=== PATIENT | female | born 1990 | race Two or more races ===

== ENCOUNTER 2019-04-03 13:57 | Emergency (ER) | payer MEDICAID ==
[~2019-04-03] VITALS: Ht 160 cm; Wt 59.4 kg
--- NOTE | 2019-04-03 14:25 | NUR ---
"LUQ ABDOMINAL PAIN W/ NAUSEA SINCE YESTERDAY. SEEN @ [facility]RG[facility]ARE WAS REFERRED TO GO TO ED FOR FURTHER EVAl" PT AAOX4, -SOB, NAD NOTED, VSS, PENDING MD BERNARDO
[2019-04-03 14:57] LABS: BASOPHILS % (AUTO) 0.6 % (0.0-2.0); EOSINOPHILS % (AUTO) 1.3 % (0.0-6.0); HEMATOCRIT 38 % (33-45); HEMOGLOBIN 12.4 g/dL (11.5-14.8); LYMPHOCYTES # (AUTO) 0.9 /CMM (0.8-4.8); MEAN CORPUSCULAR HGB CONC 33 g/dl (31.0-36.0); MEAN CORPUSCULAR VOLUME 89 fL (82-100); MONOCYTES # (AUTO) 0.5 /CMM (0.1-1.30); MONOCYTES % (AUTO) 8.3 % (2.0-12.0); NEUTROPHILS # (AUTO) 4.6 /CMM (1.8-8.9); NEUTROPHILS % (AUTO) 74.8 % (43.0-81.0); PLATELET COUNT (AUTO) 242 /CMM (150-450); RED BLOOD CELL COUNT(AUTO) 4.23 MIL/uL (4.0-5.2); WHITE BLOOD COUNT (AUTO) 6.1 K/uL (4.3-11.0)
[2019-04-03 15:04] LABS: CALCIUM, SERUM 8.7 mg/dL (8.5-10.1); CREATININE 0.7 mg/dL (0.6-1.3); POTASSIUM 3.5 mmol/L (3.5-5.1)
[2019-04-03 15:18] LABS: ALBUMIN 3.8 g/dL (3.4-5.0); BILIRUBIN,DIRECT 0.3 mg/dL (0.0-0.2); BILIRUBIN,TOTAL 0.7 mg/dL (0.2-1.0); TOTAL PROTEIN, SERUM 7.8 g/dL (6.4-8.2)
[2019-04-03] MEDS ORDERED: KETOROLAC TROMETHAMINE INJ 30 MG/ML VIAL ONE (15:29)
[2019-04-03] MEDS ORDERED: KETOROLAC TROMETHAMINE INJ 30 MG/ML VIAL IV ONE (15:30)
[2019-04-03 15:47] LABS: APPEARANCE,URINE Clear (CLEAR); BILIRUBIN,URINE Negative (NEGATIVE); BLOOD, URINE Small Ery/uL (NEGATIVE); COLOR,URINE Yellow (YELLOW); KETONES,URINE Negative (NEGATIVE); LEUKOCYTE ESTERASE ,URINE Trace (NEGATIVE); NITRITE, URINE Negative (NEGATIVE); PH,URINE 6.5 (5.0-8.0); PROTEIN,URINE Negative (NEGATIVE); UGLUCOSE Negative (NEGATIVE); UROBILINOGEN,URINE 0.2 EU/dL (0.2)
[2019-04-03 15:59] LABS: BACTERIA,URINE Many /HPF (None Seen)
[2019-04-03 16:00] VITALS: BP 121/79
[2019-04-03 16:00] LABS: SQUAMOUS EPITHELIAL CELL,UR Moderate /HPF (None Seen)
--- NOTE | 2019-04-03 16:19 | NUR ---
Patient discharged to home in stable condition. Written and verbal after care instructions given. Patient verbalizes understanding of instruction. IV removed. Catheter intact and site benign. Pressure and 4x4 applied to site. No bleeding noted.
== END 2019-04-03 16:21 | disposition home or self-care (01) ==
LOC: ER 13:57
DX: K80.50 Calculus of bile duct without cholangitis or cholecystitis without obstruction (principal); R94.5 Abnormal results of liver function studies; Z88.0 Allergy status to penicillin
CPT/HCPCS: 36415; 76705; 80048; 80076; 81001; 83690; 84702; 85025; 87077; 87086; 87186; 96374; 99284; J1885; 81000-TC

== ENCOUNTER 2019-08-08 16:14 | Emergency (ER) | payer MEDICAID ==
[~2019-08-08] VITALS: Ht 152.4 cm; Wt 59.4 kg
--- NOTE | 2019-08-08 16:25 | NUR ---
CAME IN FOR HEADACHE AND BUE TINGLING SENSATION x 2 DAYS. TO ER BED 6, HOOKED TO GLEASON GEAR GENERATOR AND POX, CHANGED T0 HOSP GOWN, WARM BLANKET PROVIDED, PATIENT AOx4, AWAITING MD BERNARDO.
--- NOTE | 2019-08-08 16:31 | NUR ---
DR VILLA AT BEDSIDE
[2019-08-08] MEDS ORDERED: ALPRAZOLAM 0.5 MG TABLET ONE (16:53)
[2019-08-08 16:58] LABS: BASOPHILS # (AUTO) 0.1 /CMM (0.0-0.2); BASOPHILS % (AUTO) 0.8 % (0.0-2.0); EOSINOPHILS % (AUTO) 3.9 % (0.0-6.0); HEMATOCRIT 38 % (33-45); HEMOGLOBIN 12.3 g/dL (11.5-14.8); LYMPHOCYTES # (AUTO) 1.3 /CMM (0.8-4.8); LYMPHOCYTES % (AUTO) 13.4 % (20.0-44.0); MEAN CORPUSCULAR HGB CONC 32 g/dl (31.0-36.0); MEAN CORPUSCULAR VOLUME 89 fL (82-100); MONOCYTES # (AUTO) 0.8 /CMM (0.1-1.30); MONOCYTES % (AUTO) 8.3 % (2.0-12.0); NEUTROPHILS # (AUTO) 7.1 /CMM (1.8-8.9); NEUTROPHILS % (AUTO) 73.6 % (43.0-81.0); PLATELET COUNT (AUTO) 254 /CMM (150-450); RED BLOOD CELL COUNT(AUTO) 4.26 MIL/uL (4.0-5.2); WHITE BLOOD COUNT (AUTO) 9.7 K/uL (4.3-11.0)
[2019-08-08] MEDS ORDERED: ALPRAZOLAM 0.5 MG TABLET PO ONE (17:00)
[2019-08-08 17:04] LABS: CALCIUM, SERUM 8.6 mg/dL (8.5-10.1); CREATININE 0.7 mg/dL (0.6-1.3); POTASSIUM 3.1 mmol/L (3.5-5.1)
[2019-08-08] MEDS ORDERED: POTASSIUM CHLORIDE 20 MEQ TAB.PRT.SR PO ONE ×2 (17:30→17:34)
[2019-08-08 17:58] VITALS: BP 116/72
--- NOTE | 2019-08-08 17:58 | NUR ---
Patient discharged to home in stable condition. Written and verbal after care instructions given. Patient verbalizes understanding of instruction.
== END 2019-08-08 17:59 | disposition home or self-care (01) ==
LOC: ER 16:14
DX: F41.9 Anxiety disorder, unspecified (principal); E87.6 Hypokalemia; Z88.0 Allergy status to penicillin
CPT/HCPCS: 36415; 80048-TC; 84702-TC; 85025-TC

== ENCOUNTER 2020-02-07 06:43 | Emergency (ER) | payer MEDICAID ==
[~2020-02-07] VITALS: Ht 152.4 cm; Wt 59.0 kg
[2020-02-07] MEDS: ONDANSETRON HCL/PF 4 MG/2 ML VIAL IVP ONE (07:00)
[2020-02-07] MEDS: MORPHINE SULFATE INJ 2 MG/ML DISP.SYRIN IV ONE (07:00)
[2020-02-07] MEDS: IV NS 0.9% 1,000 ML BAG IV ONE (07:00)
--- NOTE | 2020-02-07 07:03 | NUR ---
URINE COLLECTED AND SENT TO LAB.
--- NOTE | 2020-02-07 07:03 | NUR ---
PATIENT CAME TO ER BED 10 C/O MID EPIGASTRIC PAIN RADIATING TO THE BILATERALLY RIBCAGE SINCE 2100 OF YESTERDAY (02/06/2020). PATIENT STATES THAT SHE WENT TO [facility]RGENT [facility]ARE YESTERDAY AT 2230 AND RECEIVED TORADOL SHOT WHICH PROVIDED TEMPORARY RELIEF. PATIENT IS AAOX4 NO SOB. BREATHING EVENLY AND UNLABORED ON ROOM AIR. CONNECTED TO MONITOR.
[2020-02-07] MEDS ORDERED: ONDANSETRON HCL/PF 4 MG/2 ML VIAL ONE (07:05)
[2020-02-07] MEDS ORDERED: MORPHINE SULFATE INJ 4 MG/ML DISP.SYRIN ONE (07:05)
--- NOTE | 2020-02-07 07:32 | NUR ---
REPORT RECEIVED FROM WILFREDO CARRION FOR TERESA
[2020-02-07 07:46] LABS: BASOPHILS # (AUTO) 0.1 /CMM (0.0-0.2); BASOPHILS % (AUTO) 0.7 % (0.0-2.0); EOSINOPHILS % (AUTO) 1.9 % (0.0-6.0); HEMATOCRIT 39 % (33-45); HEMOGLOBIN 12.5 g/dL (11.5-14.8); LYMPHOCYTES # (AUTO) 1.6 /CMM (0.8-4.8); MEAN CORPUSCULAR HGB CONC 32 g/dl (31.0-36.0); MEAN CORPUSCULAR VOLUME 90 fL (82-100); MONOCYTES # (AUTO) 0.7 /CMM (0.1-1.30); MONOCYTES % (AUTO) 7.8 % (2.0-12.0); NEUTROPHILS # (AUTO) 6.3 /CMM (1.8-8.9); NEUTROPHILS % (AUTO) 71.6 % (43.0-81.0); PLATELET COUNT (AUTO) 240 /CMM (150-450); WHITE BLOOD COUNT (AUTO) 8.8 K/uL (4.3-11.0)
[2020-02-07 07:49] LABS: APPEARANCE,URINE CLEAR (CLEAR); BILIRUBIN,URINE NEGATIVE (NEGATIVE); BLOOD, URINE TRACE-INTA Ery/uL (NEGATIVE); COLOR,URINE YELLOW (YELLOW); KETONES,URINE NEGATIVE (NEGATIVE); LEUKOCYTE ESTERASE ,URINE SMALL (NEGATIVE); NITRITE, URINE POSITIVE (NEGATIVE); PH,URINE 6.5 (5.0-8.0); PROTEIN,URINE NEGATIVE (NEGATIVE); UGLUCOSE NEGATIVE (NEGATIVE); UROBILINOGEN,URINE 0.2 EU/dL (0.2)
[2020-02-07 07:53] LABS: BACTERIA,URINE Many /HPF (None Seen); SQUAMOUS EPITHELIAL CELL,UR Few /HPF (None Seen)
[2020-02-07 07:56] LABS: CALCIUM, SERUM 8.6 mg/dL (8.5-10.1); CREATININE 0.7 mg/dL (0.6-1.3); POTASSIUM 3.6 mmol/L (3.5-5.1)
[2020-02-07 08:01] LABS: ALBUMIN 3.6 g/dL (3.4-5.0); BILIRUBIN,DIRECT 0.1 mg/dL (0.0-0.2); BILIRUBIN,TOTAL 0.3 mg/dL (0.2-1.0); TOTAL PROTEIN, SERUM 7.4 g/dL (6.4-8.2)
--- NOTE | 2020-02-07 09:22 | NUR ---
PATIENT IN BED AWAKE, HOOKED TO MONITOR, VSS. WILL CONTINUE TO MONITOR ACCORDINGLY
[2020-02-07] MEDS ORDERED: KETOROLAC TROMETHAMINE 15 MG/ML VIAL ONE (10:04)
[2020-02-07] MEDS: KETOROLAC TROMETHAMINE INJ 30 MG/ML VIAL IV ONE (10:10)
--- NOTE | 2020-02-07 10:32 | NUR ---
IV removed. Catheter intact and site benign. Pressure and 4x4 applied to site. No bleeding noted.Patient discharged to home in stable condition. Written and verbal after care instructions given. Patient verbalizes understanding of instruction.
[2020-02-07 10:44] VITALS: BP 112/68
== END 2020-02-07 10:38 | disposition home or self-care (01) ==
LOC: ER 06:48
DX: K80.50 Calculus of bile duct without cholangitis or cholecystitis without obstruction (principal); Z88.0 Allergy status to penicillin
CPT/HCPCS: 36415; 71045; 76705; 80048; 80076; 81001; 83690; 84703; 85025; 87086; 96361; 96374; 96375; 99285; J1885; J2270; J2405; 81000-TC; 87186-TC

== ENCOUNTER 2020-04-11 01:02 | Emergency (ER) | payer MEDICAID ==
[~2020-04-11] VITALS: Ht 157.5 cm; Wt 59.4 kg
--- NOTE | 2020-04-11 01:16 | NUR ---
URINE COLLECTED AND SENT TO LAB
--- NOTE | 2020-04-11 01:20 | NUR ---
PT BIBSELF C/O MIDEPIGASTRIC PAIN X2 DAYS. PT DENIES NAUSEA, VOMITTING, DIARRHEA, DYSURIA, FEVER. PT AAOX4, APPEARS UNCOMFORTABLE. VITAL SIGNS STABLE. RESPIRATIONS EVEN AND UNLABORED. SKIN INTACT. AMBULATORY WITH STEADY GAIT. PLACED IN GOWN AND ON MONITOR, WILL CONTINUE TO MONITOR
--- NOTE | 2020-04-11 01:23 | NUR ---
MD AT BEDSIDE FOR EVALUATION
--- NOTE | 2020-04-11 01:25 | NUR ---
IV INITIATED RAC 18G. LABS DRAWN FROM SITE. [employer] INFORMATION CLERK AT BEDSIDE FOR COLLECTION. IV INTACT AND PATENT, PLACED ON SALINE LOCK
[2020-04-11] MEDS ORDERED: MORPHINE SULFATE INJ 4 MG/ML DISP.SYRIN ONE (01:27)
[2020-04-11] MEDS ORDERED: ONDANSETRON HCL/PF 4 MG/2 ML VIAL ONE (01:27)
[2020-04-11] MEDS ORDERED: IV NS 0.9% 1,000 ML BAG IV ONE (01:30)
[2020-04-11] MEDS ORDERED: MORPHINE SULFATE INJ 2 MG/ML DISP.SYRIN IV ONE (01:30)
[2020-04-11] MEDS ORDERED: ONDANSETRON HCL/PF 4 MG/2 ML VIAL IVP ONE (01:30)
[2020-04-11 01:56] LABS: BASOPHILS # (AUTO) 0.1 /CMM (0.0-0.2); BASOPHILS % (AUTO) 0.8 % (0.0-2.0); EOSINOPHILS % (AUTO) 3.2 % (0.0-6.0); HEMATOCRIT 37 % (33-45); HEMOGLOBIN 12.3 g/dL (11.5-14.8); LYMPHOCYTES # (AUTO) 2.3 /CMM (0.8-4.8); LYMPHOCYTES % (AUTO) 31.4 % (20.0-44.0); MEAN CORPUSCULAR HGB CONC 33 g/dl (31.0-36.0); MEAN CORPUSCULAR VOLUME 89 fL (82-100); MONOCYTES # (AUTO) 0.5 /CMM (0.1-1.30); MONOCYTES % (AUTO) 6.7 % (2.0-12.0); NEUTROPHILS # (AUTO) 4.3 /CMM (1.8-8.9); NEUTROPHILS % (AUTO) 57.9 % (43.0-81.0); PLATELET COUNT (AUTO) 294 /CMM (150-450); RED BLOOD CELL COUNT(AUTO) 4.22 MIL/uL (4.0-5.2); WHITE BLOOD COUNT (AUTO) 7.4 K/uL (4.3-11.0)
--- NOTE | 2020-04-11 02:02 | NUR ---
ULTRASOUND AT BEDSIDE
[2020-04-11 02:04] LABS: CALCIUM, SERUM 8.8 mg/dL (8.5-10.1); CREATININE 0.8 mg/dL (0.6-1.3)
[2020-04-11 02:08] LABS: ALBUMIN 3.7 g/dL (3.4-5.0); BILIRUBIN,TOTAL 0.1 mg/dL (0.2-1.0); TOTAL PROTEIN, SERUM 7.6 g/dL (6.4-8.2)
[2020-04-11] MEDS ORDERED: HYDROMORPHONE 1 MG/1 ML DISP.SYRIN ONE (02:22)
[2020-04-11] MEDS ORDERED: HYDROMORPHONE 1 MG/1 ML DISP.SYRIN IV ONE (02:30)
[2020-04-11] MEDS ORDERED: POTASSIUM CHLORIDE 20 MEQ TAB.PRT.SR PO ONE ×2 (03:30→03:38)
--- NOTE | 2020-04-11 03:50 | NUR ---
Patient discharged to home in stable condition. Written and verbal after care instructions given. Patient verbalizes understanding of instruction.IV removed. Catheter intact and site benign. Pressure and 4x4 applied to site. No bleeding noted.Pt ambulatory with a steady gait
[2020-04-11 03:51] VITALS: BP 110/68
== END 2020-04-11 03:51 | disposition home or self-care (01) ==
LOC: ER 01:04
DX: K80.50 Calculus of bile duct without cholangitis or cholecystitis without obstruction (principal); K80.20 Calculus of gallbladder without cholecystitis without obstruction; E87.6 Hypokalemia; Z88.0 Allergy status to penicillin
CPT/HCPCS: 36415; 76705; 80048; 80076; 83690; 85025; 96361; 96374; 96375; 99284; J1170; J2270; J2405; J7030